=== PATIENT | male | born 1965 | race Caucasian/White ===

== ENCOUNTER 2021-11-17 12:42 | Inpatient (IN) | payer SELFPAY ==
[~2021-11-17 12:42] MED LIST: Aspirin Chewable 81 MG TAB ONE; Heparin 10,000 UNITS/ 10 ML VIAL ONE; Iopamidol 370 76% 100 ML VIAL ONE; Iopamidol 370 76% 50 ML VIAL FS ONE; Metoprolol Tartrate 5 MG/5 ML VIAL ONE; Nitroglycerin 0.4 MG TAB (25 Tab Bottle) ONE
[2021-11-17] MEDS ORDERED: Lidocaine 1% (PF) 30 ML VIAL ONE (12:53)
[2021-11-17 12:59] LABS: #Basophils 0.1 thou/uL (0.0-0.2); #Eosinphils 0.2 thou/uL (0.0-0.7); #Lymphocytes 3.9 thou/uL (1.20-3.40); #Monocytes 0.8 thou/uL (0.11-0.59); %Basophils 0.8 % (0.0-1.0); %Eosinophils 2.2 % (0.0-10.0); %Monocytes 9.3 % (0.0-10.0); %Neutrophils 44.8 % (42.0-75.0); Hemoglobin 15.6 g/dL (14.0-18.0); Mean Corpuscular HGB CONC 34.2 g/dL (32.0-36.0); Mean Corpuscular Hemoglobin 30.4 pg (27.0-31.0); Mean Corpuscular Volume 88.7 fL (78.0-98.0); Mean Platelet Volume 7.9 fL (7.4-10.4); Platelet Count 173 thou/uL (130-400); RBC Distribution Width 12.6 % (11.5-14.5); Red Blood Cell (RBC) Count 5.13 mill/uL (4.70-6.10)
[2021-11-17 13:14] LABS: PTT 29.2 sec (22.9-36.1)
[2021-11-17] MEDS ORDERED: Verapamil 5 MG/2 ML VIAL ONE (13:24)
[2021-11-17] MEDS ORDERED: Nitroglycerin 100MG/250ML BOT 250 ML ONE (13:24)
[2021-11-17 13:27] LABS: ALT (SGPT) 24 U/L (8-55); AST (SGOT) 27 U/L (5-34); Albumin 3.5 g/dL (3.5-5.0); Alkaline Phosphatase 60 U/L (40-110); Anion Gap 16 mmol/L (10-20); BUN (Urea Nitrogen) 13 mg/dL (8.4-25.7); Bilirubin, Total 0.6 mg/dL (0.2-1.2); Calc. Creatinine Clearance 0 mL/min (70-130); Calcium 8.1 mg/dL (7.8-10.44); Carbon Dioxide 15 mmol/L (22-29); Chloride 116 mmol/L (98-107); Glucose 114 mg/dL (70-105); Potassium 3.7 mmol/L (3.5-5.1); Protein, Total 6.5 g/dL (6.0-8.3); Sodium 143 mmol/L (136-145)
[2021-11-17] MEDS ORDERED: Heparin 10,000 UNITS/ 10 ML VIAL ONE (13:27)
[2021-11-17] MEDS ORDERED: Adenosine 6 MG/2 ML VIAL ONE (13:47)
[2021-11-17] MEDS ORDERED: TICAGRELOR 90 MG TABLET ONE (14:07)
[2021-11-17] MEDS ORDERED: Sodium Chloride 0.9% 1,000 ML IV SCH (14:15)
[2021-11-17 14:49] LABS: SARS-CoV-2 NAA Rapid Test Not Detected (NotDetected)
[2021-11-17 16:33] LABS: CKMB 358.4 ng/mL (0-6.6); Troponin I 64.572 ng/mL (< 0.028)
[2021-11-17] MEDS ORDERED: Acetaminophen 325 MG TAB PO PRN (16:59)
[2021-11-17] MEDS ORDERED: Morphine 4 MG/ML VIAL SLOW IVP PRN (17:00)
[2021-11-17] MEDS ORDERED: HYDROcodone/Acetaminophen 5/325 mg Tablet PO PRN ×2 (17:01)
[2021-11-17] MEDS: Atorvastatin Calcium 40 MG TAB PO SCH (20:54)
[2021-11-17] MEDS ORDERED: TICAGRELOR 90 MG TABLET PO SCH (21:00)
[2021-11-17 21:16] LABS: CKMB Greater than 300.0 ng/mL (0-6.6); Troponin I Greater than 45.000 ng/mL (< 0.028)
[2021-11-18 04:51] LABS: #Lymphocytes 1.3 thou/uL (1.20-3.40); #Monocytes 0.7 thou/uL (0.11-0.59); #Neutrophils 14.6 thou/uL (1.40-6.50); %Basophils 0.1 % (0.0-1.0); %Eosinophils 0.1 % (0.0-10.0); %Lymphocytes 7.8 % (21.0-51.0); %Monocytes 4.4 % (0.0-10.0); %Neutrophils 87.6 % (42.0-75.0); Hemoglobin 17.7 g/dL (14.0-18.0); Mean Corpuscular HGB CONC 33.2 g/dL (32.0-36.0); Mean Corpuscular Hemoglobin 29.7 pg (27.0-31.0); Mean Corpuscular Volume 89.7 fL (78.0-98.0); Platelet Count 202 thou/uL (130-400); Red Blood Cell (RBC) Count 5.96 mill/uL (4.70-6.10); White Blood Cell (WBC) Count 16.6 thou/uL (4.8-10.8)
[2021-11-18 05:15] LABS: ALT (SGPT) 110 U/L (8-55); AST (SGOT) 428 U/L (5-34); Albumin 3.8 g/dL (3.5-5.0); Alkaline Phosphatase 71 U/L (40-110); Anion Gap 15 mmol/L (10-20); BUN (Urea Nitrogen) 18 mg/dL (8.4-25.7); Calc. Creatinine Clearance 51 mL/min (70-130); Calcium 8.9 mg/dL (7.8-10.44); Carbon Dioxide 23 mmol/L (22-29); Chloride 108 mmol/L (98-107); Globulin 3.1 g/dL (2.4-3.5); Glucose 158 mg/dL (70-105); Protein, Total 6.9 g/dL (6.0-8.3); Sodium 142 mmol/L (136-145)
[2021-11-18 05:35] LABS: CKMB Greater than 300.0 ng/mL (0-6.6)
[2021-11-18 05:56] LABS: Troponin I Greater than 45.000 ng/mL (< 0.028)
[2021-11-18] MEDS ORDERED: Furosemide 20 MG/2 ML VIAL SLOW IVP SCH (08:45)
[2021-11-18] MEDS: Aspirin Chewable 81 MG TAB PO SCH (08:58)
[2021-11-18] MEDS: Clopidogrel Bisulfate 75 MG TAB PO SCH (08:58)
[2021-11-18 10:03] LABS: ALT (SGPT) 112 U/L (8-55); AST (SGOT) 376 U/L (5-34); Albumin 3.8 g/dL (3.5-5.0); Alkaline Phosphatase 71 U/L (40-110); Anion Gap 15 mmol/L (10-20); BUN (Urea Nitrogen) 18 mg/dL (8.4-25.7); Bilirubin, Total 1.1 mg/dL (0.2-1.2); Calc. Creatinine Clearance 131 mL/min (70-130); Carbon Dioxide 20 mmol/L (22-29); Chloride 110 mmol/L (98-107); Globulin 3.4 g/dL (2.4-3.5); Glucose 141 mg/dL (70-105); Potassium 4.1 mmol/L (3.5-5.1); Protein, Total 7.2 g/dL (6.0-8.3); Sodium 141 mmol/L (136-145)
[2021-11-18] MEDS: Atorvastatin Calcium 40 MG TAB PO SCH (20:17)
[2021-11-19 03:29] LABS: #Lymphocytes 2.3 thou/uL (1.20-3.40); #Monocytes 1.4 thou/uL (0.11-0.59); #Neutrophils 11.3 thou/uL (1.40-6.50); %Basophils 0.1 % (0.0-1.0); %Eosinophils 0.3 % (0.0-10.0); %Monocytes 9.4 % (0.0-10.0); %Neutrophils 75.3 % (42.0-75.0); Mean Corpuscular HGB CONC 33.2 g/dL (32.0-36.0); Mean Corpuscular Hemoglobin 29.4 pg (27.0-31.0); Mean Corpuscular Volume 88.5 fL (78.0-98.0); Mean Platelet Volume 7.6 fL (7.4-10.4); Platelet Count 178 thou/uL (130-400); RBC Distribution Width 13.1 % (11.5-14.5); Red Blood Cell (RBC) Count 5.79 mill/uL (4.70-6.10)
[2021-11-19] MEDS: Clopidogrel Bisulfate 75 MG TAB PO SCH (09:22)
[2021-11-19] MEDS: Aspirin Chewable 81 MG TAB PO SCH (09:22)
[2021-11-19 11:10] VITALS: BMI 34.1
[2021-11-19 13:42] VITALS: BP 115/74
[2021-11-19] MEDS: Atorvastatin Calcium 40 MG TAB PO SCH (19:32)
[2021-11-20 08:10] VITALS: TEMP 98.7
[2021-11-20] MEDS: Clopidogrel Bisulfate 75 MG TAB PO SCH (09:34)
[2021-11-20] MEDS: Aspirin Chewable 81 MG TAB PO SCH (09:34)
== END 2021-11-20 11:20 | disposition home or self-care (01) | DRG 247 ==
LOC: ERS 12:42 → CCL 13:05 → CCU 15:37
PROVIDERS: ADMIT Internal Medicine Cardiovascular Disease; ATTEND Internal Medicine Cardiovascular Disease
PROC: 027034Z Dilation of Coronary Artery, One Artery with Drug-eluting Intraluminal Device, Percutaneous Approach (ICD-10-PCS; principal; 2021-11-17)
PROC: 4A023N7 Measurement of Cardiac Sampling and Pressure, Left Heart, Percutaneous Approach (ICD-10-PCS; 2021-11-17)
PROC: B2151ZZ Fluoroscopy of Left Heart using Low Osmolar Contrast (ICD-10-PCS; 2021-11-17)
PROC: B2111ZZ Fluoroscopy of Multiple Coronary Arteries using Low Osmolar Contrast (ICD-10-PCS; 2021-11-17)
PROC: B240ZZ3 Ultrasonography of Single Coronary Artery, Intravascular (ICD-10-PCS; 2021-11-17)
PROC: 3E033PZ Introduction of Platelet Inhibitor into Peripheral Vein, Percutaneous Approach (ICD-10-PCS; 2021-11-17)
DX: I21.09 ST elevation (STEMI) myocardial infarction involving other coronary artery of anterior wall (principal); J81.1 Chronic pulmonary edema; I25.10 Atherosclerotic heart disease of native coronary artery without angina pectoris; Z20.822 Contact with and (suspected) exposure to COVID-19; I08.1 Rheumatic disorders of both mitral and tricuspid valves; M17.11 Unilateral primary osteoarthritis, right knee; Z87.891 Personal history of nicotine dependence
CPT/HCPCS: 36415; 71045; 80053; 82553; 83880; 84484; 85025; 85347; 85610; 85730; 92941; 92978; 93005; 93010; 93306; 93798; 96374; C1753; C1769; C1874; C9606; J0153; J1644; J1940; J2001; J7050; Q9967; U0002